=== PATIENT | female | born 1970 | race Two or more races ===

== ENCOUNTER 2021-04-25 10:04 | Emergency (ER) | payer BC ==
[~2021-04-25] VITALS: Ht 165.1 cm; Wt 70.5 kg
[~2021-04-25 10:04] MED LIST: PANT-47 PO
[2021-04-25 10:17] VITALS: BP 127/75
== END 2021-04-25 11:26 | disposition home or self-care (01) ==
LOC: ER 10:04
DX: H11.31 Conjunctival hemorrhage, right eye (principal); E03.9 Hypothyroidism, unspecified; Z90.710 Acquired absence of both cervix and uterus; Z72.89 Other problems related to lifestyle; Z79.899 Other long term (current) drug therapy
CPT/HCPCS: 99283

== ENCOUNTER 2024-05-05 17:34 | Emergency (ER) | payer BC, OTHER ==
[~2024-05-05] VITALS: Ht 162.6 cm; Wt 71.0 kg
[2024-05-05 17:43] VITALS: BP 140/82; PULSE 73; RESP 16; TEMP 97; O2SAT 95
== END 2024-05-05 20:46 | disposition left against medical advice (07) ==
LOC: ER 17:35
DX: R05.9 Cough, unspecified (principal); Z53.21 Procedure and treatment not carried out due to patient leaving prior to being seen by health care provider